=== PATIENT | female | born 1990 | race Caucasian/White ===

== ENCOUNTER → 2019-03-28 | Outpatient (CLI) | payer BC ==
[~2019-03-28] MED LIST: ALDACTONE50 MG PO; CEPHALEXIN250 MG/5 M PO; CLARITIN; GLUCOPHAGE500 MG/TAB PO; LORTAB ELIX0.5 MG/ML PO; MOTRIN 200200 MG/TAB PO; NECON 0.5/35 351 TA1 PO; NO HOME MEDICATIONS
== END ==
LOC: COL.VAS 13:28
DX: Z13.6 Encounter for screening for cardiovascular disorders (principal); O22.03 Varicose veins of lower extremity in pregnancy, third trimester; Z3A.31 31 weeks gestation of pregnancy

== ENCOUNTER 2019-05-23 16:52 | Outpatient (CLI) | payer BC ==
[~2019-05-23] VITALS: Ht 167.6 cm; Wt 75.0 kg
[2019-05-23 17:22] VITALS: TEMP 97.6
[2019-05-23 17:30] VITALS: BP 112/64; PULSE 80; TEMP 98.2
[2019-05-23 18:00] VITALS: BP 115/78; PULSE 88
--- NOTE | 2019-05-23 18:35 | NUR ---
1835 SVE WITH NO CERVICAL CHANGE. NO CONTRACTIONS NOTED OR C/O BY PT. DISMISS INSTRUCTIONS GIVEN 1850 HOME WITH INSTRUCTIONS.
== END 2019-05-23 18:50 ==
LOC: LDRO 16:52 → OB 16:53 → LDR 16:53 → LDRO 16:53 → LDR 05-24 17:23 → UNDODEPCLI 05-28 12:23 → LDRO 05-28 13:46
DX: O99.89 Other specified diseases and conditions complicating pregnancy, childbirth and the puerperium (principal); Z3A.39 39 weeks gestation of pregnancy
CPT/HCPCS: OP

== ENCOUNTER 2019-05-26 12:09 | Inpatient (IN) | payer BC ==
[~2019-05-26] VITALS: Ht 167.6 cm; Wt 75.0 kg
[2019-05-26] VITALS (15 sets, daily range): BP systolic 112–147; BP diastolic 62–79; PULSE 65–92; TEMP 97.9–98.4
--- NOTE | 2019-05-26 12:15 | NUR ---
Patient arrives ambulatory with spouse with complaints of occasional contractions and cramping over the past few hours. Patient states she was "already dilated to 5 cm in the office the other day, so I wanted to be checked". Patient denies ROM or vaginal bleeding and reports normal movement. Patient changes into gown, EFM explained and placed. VSS. 1225- SVE per Josefina Sewell RN /-1. Patient repositioned WL and assessment completed. Updated on plan of care to monitor over one hour and recheck. Patient denies questions or need.
[2019-05-26] MEDS ORDERED: ZYRTEC 10MG10 MG PO (12:38)
--- NOTE | 2019-05-26 12:45 | NUR ---
Reactive FHR strip obtained. Patient taken off EFM per request.
--- NOTE | 2019-05-26 14:20 | NUR ---
1330- Patient much more uncomfortable with contractions. SVE by Josefina Sewell RN 1 with BBOW. See physician notification. Patient updated on plan of care. 1350- IV started, saline locked. Labs sent. Consents explained and signed. Denies questions. 1420- Patient off EFM following reactive strip to ambulate in hallway.
[2019-05-26 14:25] LABS: BASO % 0.2 % (0.0-2.0); EOS # 0.2 (0.0-0.7); EOS % 1.2 % (0-4.0); GRAN # 9.3 (1.4-6.5); GRAN % 76.7 % (42.2-75.2); HEMATOCRIT 41.3 % (37.0-47.0); HEMOGLOBIN 14.4 g/dl (12.5-16.0); LYMPH % 16.1 % (20.0-51.0); MEAN CELL VOLUME 94 fl (80.0-100.0); MEAN CORPUSCULAR HEMOGLOBIN 33 pg (27.0-31.0); MEAN CORPUSCULAR HGB CONC 35 g/dl (33.0-37.0); MEAN PLATELET VOLUME 10.3 fl (7.4-10.4); MONO # 0.6 (0.1-0.6); MONO % 5.3 % (1.7-9.3); PLATELET COUNT 209 K/mm3 (130-400); RED BLOOD COUNT 4.39 M/mm3 (4.10-5.30)
--- NOTE | 2019-05-26 16:00 | NUR ---
Dr. Yeh at bedside. Reviews FHR strip and contraction pattern. Discussing options for plan of care including discharge and laboring at home to avoid interventions if patient desires or AROM. Patient wishes to proceed with AROM. Vertex presentation confirmed via bedside sono per provider. 1609- AROM by Dr. Yeh for moderate amount of clear fluid. SVE per provider /1. Pericare given and patient updated on plan of care.
--- NOTE | 2019-05-26 16:40 | NUR ---
Patient taken off per request and order. Assisted into shower per request. Safety reviewed. Patient reports more pressure with contractions, encouraged to notify RN when pressure increases.
--- NOTE | 2019-05-26 17:45 | NUR ---
1745- Physician at bedside. 175- SVE per provider . Physician remains at bedside. Patient prepped for impending delivery. Nursery RN to bedside. 175- SVE and patient begins pushing with contractions. 180- of viable female infant attended by Dr. Yeh. Infant to mothers abdomen, care of to Hanh Hameed RN. Apgars 8/9/9. 1813- Spont. delivery of placenta. Pitocin bolus started at 333 ml/hr/protocol. Second degree perineal laceraration repaired by physician using Lidocaine. Patient tolerates well. Report to Hanh Kim RN at 1820.
--- NOTE | 2019-05-26 20:45 | NUR ---
Pt up to the bathroom with standby assist and without complications. Pt was able to void. Maya-care done. Pt complaining of back pain and requesting a wheelchair for transfer to room 208. Pt oriented to room, bed and call light within reach. Plan of care reviewed.
[2019-05-27 04:35] VITALS: BP 122/61; PULSE 62
[2019-05-27 07:05] LABS: HEMATOCRIT 36.5 % (37.0-47.0); HEMOGLOBIN 12.3 g/dl (12.5-16.0)
[2019-05-27 08:15] VITALS: BP 117/68; PULSE 80; TEMP 98
[2019-05-27] MEDS ORDERED: IBU600 MG PO (09:26)
[2019-05-27] MEDS ORDERED: CITRANATAL DHA1 KIT PO (09:28)
--- NOTE | 2019-05-27 11:41 | NUR ---
Initial visit; Mom thanked for offering congratulations for the of their daughter. thanked her for choosing [facility].
[2019-05-27 16:15] VITALS: BP 121/66; PULSE 64; TEMP 98
[2019-05-27 20:30] VITALS: BP 128/78; PULSE 82; TEMP 98.5
[2019-05-28 07:28] VITALS: BP 124/64; PULSE 78
== END 2019-05-28 11:33 | disposition home or self-care (01) | DRG 807 ==
LOC: LDRO 12:09 → OB 12:15 → LDR 12:15 → OB 21:37
PROVIDERS: ADMIT Obstetrics & Gynecology
PROC: 10E0XZZ Delivery of Products of Conception, External Approach (ICD-10-PCS; principal; 2019-05-26)
PROC: 0KQM0ZZ Repair Perineum Muscle, Open Approach (ICD-10-PCS; 2019-05-26)
DX: O99.62 Diseases of the digestive system complicating childbirth (principal); Z37.0 Single live birth; K21.9 Gastro-esophageal reflux disease without esophagitis; O99.344 Other mental disorders complicating childbirth; F41.9 Anxiety disorder, unspecified; O70.1 Second degree perineal laceration during delivery; Z3A.39 39 weeks gestation of pregnancy; O99.52 Diseases of the respiratory system complicating childbirth; J30.2 Other seasonal allergic rhinitis; Z79.82 Long term (current) use of aspirin
CPT/HCPCS: J2590; J7120